=== PATIENT | male | born 1940 | race Hispanic/Latino ===

== ENCOUNTER → 2018-06-27 | Day surgery (SDC) | payer MEDICARE ==
[2018-06-25 10:47] LABS: BASOPHILS % 0.4 % (0.0-1.0); EOSINOPHILS # (AUTO) 0.1 (0.0-0.4); EOSINOPHILS % 1.9 % (0.0-6.0); HEMATOCRIT 41.1 % (38.2-49.6); HEMOGLOBIN 13.8 g/dL (14.0-18.0); LYMPHOCYTES % 14.8 % (18.0-39.1); MEAN CORPUSCULAR HEMOGLOBIN 28.5 pg (28-32); MEAN CORPUSCULAR HGB CONC 33.6 g/dL (31-35); MEAN CORPUSCULAR VOLUME 84.9 fL (81-99); MONOCYTES # (AUTO) 0.4 (0.2-0.8); MONOCYTES % 6.4 % (4.4-11.3); NEUTROPHILS # (AUTO) 5.1 (2.1-6.9); NEUTROPHILS % 76.2 % (38.7-80.0); PLATELET COUNT 279 x10e3/uL (140-360); RED BLOOD COUNT 4.84 x10e6/uL (4.3-5.7)
--- NOTE | 2018-06-25 11:12 | Diagnostic Imaging Report ---
EXAMINATION: CHEST 2 VIEWS INDICATION: Pre-op. COMPARISON: None FINDINGS: TUBES and LINES: None. LUNGS: Lungs are well inflated. Mild patchy left basilar opacity. No evidence of pulmonary edema. PLEURA: No pleural effusion or pneumothorax. HEART AND MEDIASTINUM: The cardiomediastinal silhouette is unremarkable. BONES AND SOFT TISSUES: There is mild multilevel age indeterminant vertebral body height loss in the mid and lower thoracic spine. UPPER ABDOMEN: No free air under the diaphragm. IMPRESSION: Mild patchy left basilar opacity, likely atelectasis. Pneumonia is possible in the appropriate clinical setting. Suggest follow-up chest radiograph in 6-8 weeks to assess resolution. There is mild multilevel age indeterminant vertebral body height loss in the mid and lower thoracic spine. Suggest correlation for point tenderness. Signed by: Dr. Peterson Rice MD on 06/25/2018 11:09 AM
[~2018-06-27] MED LIST: AMLODIPINE BESYL5 MG PO; BUPIVACAINE 0.5%/EPI 30 ML SDV INJ ONE; CEFAZOLIN SOD 2 GM/D5W 50ML 50 ML IV ONE; DEXAMETHASONE SOD PHOS INJ 4 MG/ML VIAL ONE; FENTANYL CITRATE/PF 100MCG/2 ML INJ ONE; JARDANCE PO; KETOROLAC TROMETHAMINE 30 MG/ML VIAL ONE; LIDOCAINE HCL 2% LOCAL INJ 5 ML SDV VIAL INJ ONE; LISINOPRIL10 MG PO; METFORMIN HCL500 MG PO; METOPROLOL SUCC25 MG PO; MIDAZOLAM HCL 2 MG/2 ML VIAL ONE; ONDANSETRON HCL INJ 2MG/ML 2ML 2 MG/ML VIAL ONE; PROPOFOL IV EMULSION 10 MG/ML 20 ML VIAL ONE; SEVOFLURANE INHAL SOLN 250 ML PEN BTL ONE; TRADJENTA5 MG PO
--- OUTSIDE RECORDS SUMMARY | 2018-06-27 06:04 | XMS REPORT | Summary of Care ---
Author Organization Unknown Address Unknown Phone Unavailable Encounter HQ Encntr_alias(FIN) [id number] Date(s): 09/04/14 - 09/04/14 [facility] Outpatient Imaging [address] [address]- [phone] Discharge Disposition: Home Physician Attending: Jacquie Trevino MD Vital Signs No data available for this section Problem List No data available for this section Allergies, Adverse Reactions, Alerts No data available for this section Medications No data available for this section Results No data available for this section Immunizations No data available for this section Procedures No data available for this section Social History No data available for this section Assessment and Plan No data available for this section
--- OUTSIDE RECORDS SUMMARY | 2018-06-27 06:04 | XMS REPORT ---
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 Allergies, Adverse Reactions, Alerts This patient has no known allergies or adverse reactions. Medications This patient has no known medications. Results Test Description Test Time Test Comments Text Results Atomic Results Result Comments CHEST 2 VIEWS 2018-06-25 11:06:00 [place] [address] Patient Name: JULIO ROSARIO MR #: [id number] : 1940 Age/Sex: 78/M Req #: [id number] Adm Physician: Ordered by: HAY SCOTT MD Report #: [id number] Location: OR Room/Bed: Procedure: [id number] DX/CHEST 2 VIEWS Exam Date: 06/25/18 Exam Time: 1020 REPORT STATUS: Signed EXAMINATION: CHEST 2 VIEWS INDICATION: Pre-op. COMPARISON: None FINDINGS: TUBES and LINES: None. LUNGS: Lungs are well inflated. Mild patchy left basilar opacity. No evidence of pulmonary edema. PLEURA: No pleural effusion or pneumothorax. HEART AND MEDIASTINUM: The cardiomediastinal silhouette is unremarkable. BONES AND SOFT TISSUES: There is mild multilevel age indeterminant vertebral body height loss in the mid and lower thoracic spine. UPPER ABDOMEN: No free air under the diaphragm. IMPRESSION: Mild patchy left basilar opacity, likely atelectasis. Pneumonia is possible in the appropriate clinical setting. Suggest follow-up chest radiograph in 6-8 weeks to assess resolution. There is mild multilevel age indeterminant vertebral body height loss in the mid and lower thoracic spine. Suggest correlation for point tenderness. Signed by: Dr. Newton Carlin MD on 06/25/2018 11:09 AM Dictated By: NEWTON CARLIN MD 1109 Transcribed By: SALINAS on 06/25/18 1109 COPY TO: HAY SCOTT MD
--- OUTSIDE RECORDS SUMMARY | 2018-06-27 06:04 | XMS REPORT | Continuity of Care Document ---
Author Author [facility] Address Unknown Phone Unavailable Problems Problem Status Onset Date Classification Date Reported Comments Source Radiculopathy, lumbar region 05/16/2017 08/14/2017 [facility] DX: M54.5=LOW BACK PAIN/M54.16=RADICULOP Active 04/30/2017 [facility] M54.3 Active 09/04/2016 [facility] M54.17 - "RADICULOPATHY, LUMBOSACRAL REG Active 06/27/2016 [facility] M43.8X9 - OTHER SPECIFIED DEFORMING DORS Active 03/10/2015 [facility] 737.9 - CURVATURE OF SP 715.90 - OSTEOAR Active 09/29/2014 [facility] 724.2 - LUMBAGO Active 09/03/2014 [facility] Spinal stenosis, lumbar region without neurogenic claudication 08/14/2017 [facility] Diabetes Active Problem 08/14/2017 [facility] 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 WASTE: F/P - Black; E - Municipal Trash Bin Inactive 05/08/2017 [facility] Fluticasone propionate 0.05 MG/ACTUAT Metered Dose Nasal [place] 1 spray, NASAL, BID, # 16 gm, 0 Refill(s) Active 09/29/2016 [facility] metoprolol 25 mg oral tablet, extended release 25 mg=1 tab, PO, Daily, # 30 tab, 0 Refill(s) Active 09/29/2016 [facility] 8 HR Acetaminophen 650 MG Extended Release Tablet [Tylenol] 1,300 mg=2 tab, PO, Q8H, 0 Refill(s) Active 09/29/2016 [facility] lisinopril 40 mg oral tablet 40 mg=1 tab, PO, Daily, # 30 tab, 0 Refill(s) Active 09/29/2016 [facility] amLODIPine 5 mg oral tablet 5 mg=1 tab, PO, Daily, # 30 tab, 0 Refill(s) Active 09/29/2016 [facility] Metformin PO, 0 Refill(s) Active 09/29/2016 [facility] Allergies, Adverse Reactions, Alerts Substance Category Reaction Severity Reaction type Status Date Reported Comments Source Immunizations Immunization Date Given Site Status Last Updated Comments Source Results Order Name Results Value Reference Range Date Interpretation Comments Source Spine lumbar myelogram CT Spine lumbar myelogram CT Patient Name: JULIO ROSARIO : 1940; Age: 76 years Male MR: [id number] Study: Spine lumbar myelogram CT 05/08/2017 9:50 AM CDT Clinical Indication: - M54.5 Low back pain, M54.16 Radiculopathy, lumbar region COMPARISON: None TECHNIQUE: Sequential trans-axial images were obtained with a multi-detector helical CT after the myelogram. Coronal and sagittal reconstructions were obtained. FINDINGS: ALIGNMENT AND GENERAL ASSESSMENT: There are 6 nonrib-bearing lumbar vertebral segments. There is straightening of the lumbar spine and loss of the normal cervical lordosis. There are no pars interarticularis defects noted. The anterior and posterior paraspinal soft tissues are unremarkable. The spinous processes are unremarkable. Bilateral spurring involving the L2-L4 vertebral bodies. The conus medullaris is unremarkable, ending at the L1 level. DISK SPACES: T12-L1: There is no significant bulge or protrusion and no spinal or foraminal stenosis. L1-L2: Small broad-based disc osteophyte complex. No central stenosis. Mild right, moderate left foraminal stenosis. L2-L3: Broad-based disc osteophyte complex. Moderate central stenosis with moderate right lateral recess stenosis. Moderate bilateral foraminal stenosis. L3-L4: Central disc osteophyte complex. Moderate central stenosis with mild bilateral lateral recess stenosis. Mild to moderate right and moderate left foraminal stenosis. L4-L5: Central disc osteophyte complex. Moderate central stenosis with severe right and moderate left foraminal stenosis. Mild facet arthritic change bilaterally. L5-S1: Central disc osteophyte complex. Severe central and moderate bilateral lateral recess stenosis. Severe right and moderate left foraminal stenosis. IMPRESSION: Multilevel spinal, foraminal and lateral recess stenosis as described above. SL: [id number] 05/08/2017 - - Read by: Jd Ha MD Dictated Date/time: 05/08/17 15:32 Electronically Signed by: Jd Ha MD 05/08/17 15:45 FINAL REPORT [facility] Spine lumbar myelogram DX Spine lumbar myelogram DX Patient Name: JULIO ROSARIO : 1940; Age: 76 years y/o Male MR: [id number] Study: Spine lumbar myelogram DX 05/08/2017 8:06 AM CDT Clinical Indication: - M54.5 Low back pain, M54.16 Radiculopathy, lumbar region. COMPARISON: None. Fluoroscopy time: 21 seconds. EXAM: Lumbar Puncture, flouroscopic guidance CONSENT: The patient denied any drug allergies. The patient denied intake of any blood thinners, including Plavix, aspirin and warfarin. The risks and benefits of the procedure, the risk of doing nothing, as well as alternative therapies were explained to the patient. The patient was then allowed to ask questions. The patient stated understanding and agreed to proceed. It is my judgment the patient does understand the treatment plan. TECHNIQUE AND FINDINGS: Time out procedure was performed. The lower back was prepped and draped in sterile fashion with the patient in prone position. Under fluoroscopic guidance a 22 gauge Quincke tip needle was advanced into the thecal sac at the L4-L5 interspace, and 12 cc of Omnipaque 180 was injected. COMPLICATION: None. IMPRESSION: Fluoroscopically guided myelogram. SL: [id number] 05/08/2017 - - Read by: Jd Ha MD Dictated Date/time: 05/08/17 10:23 Electronically Signed by: Jd Ha MD 05/08/17 10:24 FINAL REPORT [facility] CHEM PANEL eGFR 76 mL/min/1.73m2 09/29/2016 Result Comment: The eGFR is calculated using the CKD-EPI formula. In most young, healthy individuals the eGFR will be >90 mL/min/1.73m2. The eGFR declines with age. An eGFR of 60-89 may be normal in some populations, particularly the elderly, for whom the CKD-EPI formula has not been extensively validated. Use of the eGFR is not recommended in the following populations: Individuals with unstable creatinine concentrations, including patients and those with serious co-morbid conditions. Patients with extremes in muscle mass or diet. The data above are obtained from the National Kidney Disease Education Program (NKDEP) which additionally recommends that when the eGFR is used in patients with extremes of body mass index for purposes of drug dosing, the eGFR should be multiplied by the estimated BMI. [facility] CHEM PANEL AGAP 13.7 meq/L 10.0 - 20.0 09/29/2016 [facility] CHEM PANEL CO2 24 meq/L 24 - 32 09/29/2016 [facility] CHEM PANEL Calcium Lvl 9.1 mg/dL 8.5 - 10.5 09/29/2016 [facility] CHEM PANEL BUN 20 mg/dL 7 - 22 09/29/2016 [facility] CHEM PANEL Glucose Lvl 137 mg/dL 70 - 99 09/29/2016 [facility] CHEM PANEL Chloride Lvl 107 meq/L 95 - 109 09/29/2016 [facility] CHEM PANEL Sodium Lvl 140 meq/L 135 - 145 09/29/2016 [facility] CHEM PANEL Potassium Lvl 4.7 meq/L 3.5 - 5.1 09/29/2016 [facility] CHEM PANEL Creatinine Lvl 0.97 mg/dL 0.50 - 1.40 09/29/2016 [facility] Spine lumbar wo contrast MRI Spine lumbar wo contrast MRI Spine lumbar wo contrast MRI CLINICAL INDICATION: Sciatica. Patient states he has had chronic back pain for most of his life worsening as of late. No trauma, no previous surgeries. - General Anesthesia. Tech:Sukhwinder Rojas; COMPARISON: None TECHNIQUE: Multiplanar imaging of the lumbar spine was performed without IV contrast utilizing T1 and T2 weighted sequences. FINDINGS: Retroperitoneum/Soft tissues: Mild perinephric stranding suggesting medical renal disease. Vertebral bodies and Alignment: 5 non-rib bearing lumbar type vertebrae are presumed. Vertebral bodies demonstrate appropriate height and normal signal on T1 and T2 weighted sequences. Lower thoracic Cord: The conus medullaris demonstrates normal morphology and terminates at mid L1 level. T12-L1 level: Small disc osteophyte complex is noted along with mild diffuse disc bulge and facet arthrosis. This results in mild central canal stenosis and mild right foraminal stenosis. L1-L2 level: Moderate size disc osteophyte complex, diffuse disc bulge and facet arthrosis. This results in moderate central canal stenosis and vbzp-yr-rucfaagi bilateral foraminal stenosis. L2-L3 level: Large diffuse disc bulge, central disc herniation, facet arthrosis, and ligamentous hypertrophy is noted. There is severe central canal stenosis and moderate bilateral foraminal stenosis, mildly worse on the left. L3-L4 level: Large diffuse disc bulge, facet arthrosis and ligamentous hypertrophy is present resulting in severe central canal stenosis. There is moderate to severe bilateral foraminal stenosis, mildly worse on the right. L4-L5 level: Large diffuse disc bulge, facet arthrosis and ligamentous hypertrophy is present. This results in severe central canal stenosis and moderate to severe bilateral foraminal stenosis, worse on the left. Modic endplate changes are also noted at this level. L5-S1 level: Disc desiccation, diffuse disc bulge and facet arthrosis. Mild central canal stenosis and mild bilateral foraminal stenosis. IMPRESSION: Combination of disc disease, facet arthrosis and ligamentous hypertrophy at L2- L3, L3-L4 and L4-L5 level results in severe central canal stenosis. There is moderate to severe bilateral foraminal stenosis at L3-L4 and L4-L5 level with moderate bilateral foraminal stenosis at L2-L3 level. Disc disease and facet arthrosis at other levels in the lumbar spine results in ubsy-qb-dihtfslj narrowing of central canal and upbg-zr-oejmqxgt foraminal narrowing as discussed in detail above. SL: [id number] 09/29/2016 - - Read by: Tristian Charles MD Dictated Date/time: 09/29/16 16:24 Electronically Signed by: Tristian Charles MD 09/29/16 16:42 FINAL REPORT [facility] Spine Thoracic wo contrast MRI Spine Thoracic wo contrast MRI Spine Thoracic wo contrast MRI CLINICAL INDICATION: Sciatica. Patient states he has had chronic back pain for most of his life worsening as of late. No trauma, no previous surgeries. - General Anesthesia. Tech:Sukhwinder Rojas; COMPARISON: None TECHNIQUE: Multiplanar T1, T2, STIR weighted noncontrast MRI of the thoracic spine was performed using routine protocol. FINDINGS: ALIGNMENT AND GENERAL SURVEY: There is normal alignment of the thoracic spine. No abnormal marrow signal is present in the vertebral bodies. No compression fractures are noted. SPINAL CORD: The thoracic spine spinal cord is normal in size and signal. The CSF space is unremarkable. The conus medullaris ends at the upper aspect of L1 level. DISK SPACES: There is mild spondylosis and degenerative disc disease throughout the thoracic spine. Small central disc herniation is visualized at T5-T6 level results in mild effacement of the thecal sac. There is mild central canal stenosis but no significant foraminal stenosis. Small disc osteophyte complex is noted at T6-T7 level without any significant central canal or foraminal stenosis. Small disc osteophyte complex at T8-T9 level results in mild central canal stenosis. No significant foraminal stenosis. Mild diffuse disc bulge and facet arthrosis at T10-T11 level result in mild central canal stenosis. No significant foraminal stenosis. Disc osteophyte complex at T12-L1 level and facet arthrosis results in jcks-ac-hoegoxck central canal stenosis and mild right foraminal stenosis SOFT TISSUES: No abnormal signal is noted in the paraspinal soft tissues. IMPRESSION: Multilevel disc disease without any evidence for high-grade central canal narrowing or cord compression. Mild central canal stenosis is present at multiple levels as discussed in detail above. Disc osteophyte complex and facet arthrosis at T12-L1 level results in wayl-uq-vgoazhpq central canal stenosis and mild right foraminal stenosis 09/29/2016 - - Read by: Tristian Charles MD Dictated Date/time: 09/29/16 16:05 Electronically Signed by: Tristian Charles MD 09/29/16 16:16 FINAL REPORT [facility] Hip 2/3 views uni DX Hip 2/3 views uni DX Patient Name: JULIO ROSARIO : 1940; Age: 76 years Male MR: [id number] Study: Hip 2/3 views uni DX 06/30/2016 9:20 AM CDT Clinical Indication: M25.551 Pain in right hip. COMPARISON: None FINDINGS: Views and laterality: 2 views right Examination of the hip demonstrates normal alignment. There are no fractures. There are no dislocations. There are no radiopaque foreign bodies. There is no radiographic evidence of femoro-acetabular impingement or acetabular dysplasia. The visualized sacroiliac joint and symphysis pubis are normal. If there is further concern, recommend follow-up radiographs or MRI for complete assessment. IMPRESSION: No fracture or dislocation of the hip. : [id number] 06/30/2016 - - Read by: Jd Ha MD Dictated Date/time: 06/30/16 11:12 Electronically Signed by: Jd Ha MD 06/30/16 11:16 [facility] Spine lumbar 2 or 3 views DX Spine lumbar 2 or 3 views DX Patient Name: JULIO ROSARIO : 1940; Age: 76 years Male MR: [id number] Study: Spine lumbar 2 or 3 views DX 06/30/2016 9:19 AM CDT Clinical Indication: M54.17 Radiculopathy, lumbosacral region. Back pain and right hip pain. COMPARISON: 09/04/2014. FINDINGS: Views: 3 There is lumbarization of the S1 vertebral body. Mild rightward lumbar curvature. Stable loss of the normal lumbar lordosis. There are no compression fractures. There is no spondylolisthesis. Disc height loss at all lumbar levels with progression at L3 and L4. Moderate to severe facet arthritic change. The transverse processes are obscured by bowel gas. The paraspinal soft tissues are normal. The visualized sacroiliac joints are normal. If there is further concern, recommend follow-up radiographs or MRI for complete assessment. IMPRESSION: Progression of lumbar spondylosis. SL: [id number] 06/30/2016 - - Read by: Jd Ha MD Dictated Date/time: 06/30/16 10:43 Electronically Signed by: Jd Ha MD 06/30/16 10:48 FINAL REPORT [facility] Spine lumbar 2 or 3 views DX Spine lumbar 2 or 3 views DX REASON FOR EXAM: 724.2. COMPARISON: None. FINDINGS: AP and lateral views of the lumbar spine. Four images are submitted. There are 5 lumbar vertebral bodies. There is a transitional S1 segment designated as S1. There is mild curvature of the lumbar spine convex to the right. There is straightening of the normal lumbar lordosis. There is spondylosis of the lumbar spine and visualized lower thoracic spine with anterior and lateral marginal osteophytes at all levels. There are bridging right lateral marginal osteophytes at T12-L1, L2-L3 and L3-L4. There is disc space narrowing at all levels of the lumbar spine. There is vacuum disc phenomenon from L3-L4 through L5-S1 compatible with degenerative disc disease. There is facet arthropathy of the lower lumbar spine. There is minimal anterior height loss of L1. There is no significant compression deformity. There is mild segmental sclerosis of the right sacroiliac joint. There are mild aortic calcifications. IMPRESSION: 1. Mild curvature of the lumbar spine convex to the right. Straightening of the normal lordosis. 2. Advanced degenerative changes of the lumbar spine and visualized lower thoracic spine as described above. 3. Mild degenerative changes of the right sacroiliac joint. SL: 16 09/04/2014 - - Read by: Shine Gamboa MD Dictated Date/time: 09/04/14 12:13 Electronically Signed by: Shine Gamboa MD 09/04/14 12:24 FINAL REPORT [facility] Vital Signs Vital Sign Value Date Comments Source Systolic (mm Hg) 122 09/29/2016 [facility] Diastolic (mm Hg) 63 09/29/2016 [facility] Respitory Rate 14 09/29/2016 [facility] Respitory Rate 14 09/29/2016 [facility] Systolic (mm Hg) 145 09/29/2016 [facility] Diastolic (mm Hg) 48 09/29/2016 [facility] Height 180.34 cm 09/29/2016 [facility] Weight 94.091 09/29/2016 [facility] BMI Calculated 28.93 09/29/2016 [facility] Heart Rate 81 09/29/2016 [facility] Respitory Rate 20 09/29/2016 [facility] Systolic (mm Hg) 148 09/29/2016 [facility] Diastolic (mm Hg) 79 09/29/2016 [facility] Temperature Oral (F) 98.1 F 09/29/2016 [facility] Encounters Location Location Details Encounter Type Encounter Number Reason For Visit Attending Provider ADM Date DC Date Status Source [facility] Outpatient [facility] [id number] Jacquie Trevino 09/04/2014 09/05/2014 [facility] Outpatient [id number] Arcadio Alejo Jr 09/29/2016 09/29/2016 [facility] Outpatient [id number] Mike Smith 05/08/2017 05/09/2017 [facility] Procedures Procedure Code Date Perfomer Comments Source Colonoscopy [id number] [facility]
--- OUTSIDE RECORDS SUMMARY | 2018-06-27 06:04 | XMS REPORT | Summary of Care ---
Author Author [facility] Organization [facility] Address Unknown Phone Unavailable Encounter HQ Vadimr_virgilio(FIN) [id number] Date(s): 05/08/17 - 05/08/[address] [facility] [address] [place] [address]- Encounter Diagnosis Radiculopathy, lumbar region (Final) - 05/15/17 Spinal stenosis, lumbar region without neurogenic claudication (Final) - Discharge Disposition: Home or Self Care Attending Physician: Mike Smith MD Referring Physician: Mike Smith MD Vital Signs No data available for this section Problem List Condition Effective Dates Status Health Status Informant Diabetes(Confirmed) Active [place] [facility] (hard of Active hearing)(Confirmed) Hypertension(Confirm Active ed) Allergies, Adverse Reactions, Alerts Substance Reaction Severity Status NKDA Active Medications Omnipaque 180 2,160 mg, 12 mL, Route: MISC, Drug form: SOLN, ONCE, Start date: 05/08/17 8:57:0 0 CDT, Stop date: 05/08/17 8:57:00 CDT Notes: (Same as:Omnipaque 180).WASTE: F/P - Black; E - Municipal Trash Bin Start Date: 05/08/17 Stop Date: 05/08/17 Status: Completed Results No data available for this section Immunizations No data available for this section Procedures Procedure Date Related Diagnosis Body Site Status Colonoscopy Completed Social History Social History Type Response Substance Abuse Use: None. Alcohol Never, Previous treatment: None. Smoking Status Never smoker; Exposure to Tobacco Smoke None; Cigarette Smoking Last 365 Days No; Reg Smoking Cessation Counseling No entered on: 09/29/16 Assessment and Plan No data available for this section
--- OUTSIDE RECORDS SUMMARY | 2018-06-27 06:04 | XMS REPORT | Summary of Care ---
Author Author [facility] Organization [facility] Address Unknown Phone Unavailable Encounter ASTRID Yeung(TIM) [id number] Date(s): 09/29/16 - 09/29/16 [facility] [address] [place] [address]- Discharge Disposition: Home or Self Care Attending Physician: Arcadio Brown MD Referring Physician: Arcadio Brown MD Vital Signs 1 2 3 Most recent to oldest [Reference Range]: 180.34 cm (09/29/16 11:54 AM) Height 98.1 DegF (09/29/16 11:54 AM) Temperature Oral [96.4-99.1 DegF] 122/63 mmHg (09/29/16 3:45 PM) 145/48 mmHg *HI* (09/29/16 3:30 PM) 148/79 mmHg *HI* (09/29/16 11:54 AM) Blood Pressure [90-140/60-90 mmHg] 14 BRMIN (09/29/16 3:45 PM) 14 BRMIN (09/29/16 3:30 PM) 20 BRMIN (09/29/16 11:54 AM) Respiratory Rate [14-20 BRMIN] 81 bpm (09/29/16 11:54 AM) Peripheral Pulse Rate [60-100 bpm] 94.091 kg (09/29/16 11:54 AM) Weight 28.93 m2 (09/29/16 11:54 AM) Body Mass Index Problem List Condition Effective Dates Status Health Status Informant Diabetes(Confirmed) Active [place] (hard of Active hearing)(Confirmed) Hypertension(Confirm Active ed) Allergies, Adverse Reactions, Alerts Substance Reaction Severity Status NKDA Active Medications amLODIPine 5 mg oral tablet 5 mg=1 tab, PO, Daily, # 30 tab, 0 Refill(s) Start Date: 09/29/16 Status: Ordered fluticasone nasal 0.05 mg/inh spray 1 spray, NASAL, BID, # 16 gm, 0 Refill(s) Start Date: 09/29/16 Status: Ordered lisinopril 40 mg oral tablet 40 mg=1 tab, PO, Daily, # 30 tab, 0 Refill(s) Start Date: 09/29/16 Status: Ordered metFORMIN PO, 0 Refill(s) Start Date: 09/29/16 Status: Ordered metoprolol 25 mg oral tablet, extended release 25 mg=1 tab, PO, Daily, # 30 tab, 0 Refill(s) Start Date: 09/29/16 Status: Ordered Tylenol Arthritis Caplet 650 mg oral tablet, extended release 1,300 mg=2 tab, PO, Q8H, 0 Refill(s) Start Date: 09/29/16 Status: Ordered Results ELECTROLYTES Most recent to 1 oldest [Reference Range]: Sodium Lvl [135-145 140 mEq/L mEq/L] (09/29/16 12:17 PM) Potassium Lvl 4.7 mEq/L [3.5-5.1 mEq/L] (09/29/16 12:17 PM) Chloride Lvl [95-109 107 mEq/L mEq/L] (09/29/16 12:17 PM) CO2 [24-32 mEq/L] 24 mEq/L (09/29/16 12:17 PM) AGAP [10.0-20.0 13.7 mEq/L mEq/L] (09/29/16 12:17 PM) CHEM PANEL Most recent to 1 oldest [Reference Range]: Creatinine Lvl 0.97 mg/dL [0.50-1.40 mg/dL] (09/29/16 12:17 PM) eGFR 76 mL/min/1.73m2 1 *NA* (09/29/16 12:17 PM) BUN [7-22 mg/dL] 20 mg/dL (09/29/16 12:17 PM) Glucose Lvl [70-99 137 mg/dL mg/dL] *HI* (09/29/16 12:17 PM) Calcium Lvl 9.1 mg/dL [8.5-10.5 mg/dL] (09/29/16 12:17 PM) 1Result Comment: The eGFR is calculated using the [...] from the National Kidney Disease Education Program ( NKDEP) which additionally recommends that when the eGFR is used in patients with extremes of body mass index for purposes of drug dosing, the eGFR should be mul tiplied by the estimated BMI. Immunizations No data available for this section Procedures Procedure Date Related Diagnosis Body Site Colonoscopy Social History Social History Type Response Substance Abuse Use: None. Alcohol Never, Previous treatment: None. Smoking Status Never smoker; Exposure to Tobacco Smoke None; Cigarette Smoking Last 365 Days No; Reg Smoking Cessation Counseling No Assessment and Plan No data available for this section
[2018-06-27 08:10] LABS: ANION GAP 14.7 mmol/L (8-16); CALCIUM 9.7 mg/dL (8.4-10.2); CREATININE, SERUM 1.19 mg/dL (0.72-1.25); POTASSIUM 4.7 mmol/L (3.5-5.1)
[2018-06-27 11:20] VITALS: BP 137/87
--- NOTE | 2018-06-27 18:26 | Operative Report ---
DATE OF PROCEDURE: 06/27/2018 SURGEON: Mike Olmos MD PREOPERATIVE DIAGNOSES: Left knee medial meniscus tear and left knee degenerative joint disease. POSTOPERATIVE DIAGNOSES: Left knee medial meniscus tear and left knee degenerative joint disease. OPERATIONS AND PROCEDURE PERFORMED: The patient underwent a left knee examination under anesthesia, left knee arthroscopy, left knee partial medial meniscectomy, left knee chondroplasty of the patella, the trochlea, the medial femoral condyle, the medial tibial plateau and the lateral tibial plateau. DIRECTOR OF ORTHOPEDICS: Karon Del Valle. ANESTHESIA: General endotracheal intubation anesthesia. IV FLUIDS: Per the anesthesia record. BRIEF DESCRIPTION OF THE PATIENT'S OPERATIVE PROCEDURE: Mr. George was taken to the operating room, placed in supine position on the operating table. Following induction of general anesthesia as well as endotracheal intubation, the patient's left lower extremity was examined under anesthesia. He was found to have a mild effusion within the joint but otherwise ligamentously stable knee. The patient's lower extremities were prepped and draped in standard surgical fashion. A two-port technique used to provide this patient arthroscopic evaluation of the knee joint. Examination of suprapatellar pouch and medial lateral gutters found no evidence of loose bodies. 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 Scope was advanced in the medial compartment. Examination of the medial compartment demonstrated a torn medial meniscus. There was also chondromalacia of the articulating surfaces. A combination of biting forceps and motorized shaver were used to resect the torn portion of meniscus. Chondroplasties of the medial femoral condyle and medial tibial plateau performed at this time. Scope was then advanced to the intercondylar notch and the anterior cruciate ligament was identified and found to be intact. Scope was advanced to the lateral compartment. Examination of the lateral compartment demonstrated chondromalacia of the lateral tibial plateau. A chondroplasty of the surface was performed. Scope was then placed in suprapatellar pouch and chondroplasties of the patella and trochlea were performed. The knee was deflated with sterile saline. The portal sites were closed using 4-0 nylon suture. The portal sites were then injected with 0.5% Marcaine with epinephrine. Sterile dressings were applied. The patient was awakened and then taken to postanesthesia care unit in stable condition. MD MARGARITO Duke/BRITNI /[id number]
== END | disposition home or self-care (01) ==
LOC: OR 06:02
PROVIDERS: ATTEND Specialist
DX: S83.222A Peripheral tear of medial meniscus, current injury, left knee, initial encounter (principal); M17.12 Unilateral primary osteoarthritis, left knee; M22.42 Chondromalacia patellae, left knee; E11.9 Type 2 diabetes mellitus without complications; G47.33 Obstructive sleep apnea (adult) (pediatric); I10 Essential (primary) hypertension; F17.219 Nicotine dependence, cigarettes, with unspecified nicotine-induced disorders; X58.XXXA Exposure to other specified factors, initial encounter; Z01.810 Encounter for preprocedural cardiovascular examination; Z01.812 Encounter for preprocedural laboratory examination; Z01.818 Encounter for other preprocedural examination; Z79.84 Long term (current) use of oral hypoglycemic drugs
CPT/HCPCS: 29881; 36415 ×2; 71046; 80048; 82948; 85025; 93005; J0690; J1100; J1885; J2001; J2250; J2405; J2704